=== PATIENT | male | born 1970 | race Caucasian/White ===

== ENCOUNTER 2017-05-03 16:23 | Outpatient (CLI) | payer OTHER | END 2017-05-03 16:24 | disposition critical access hospital (66) | LOC: EMS 16:23 | PROVIDERS: ATTEND Surgery | DX: M54.89 Other dorsalgia (principal); W10.8XXA Fall (on) (from) other stairs and steps, initial encounter; Y92.89 Other specified places as the place of occurrence of the external cause | CPT/HCPCS: A0425; A0427 ==

== ENCOUNTER 2017-05-03 16:39 | Emergency (ER) | payer OTHER ==
[2017-05-03] MEDS ORDERED: HYDROmorphone 1 MG/ML SYRINGE IVP STA ×4 (16:43→21:03)
[2017-05-03] MEDS ORDERED: KETOROLAC 60 MG/2 ML VIAL IVP STA (16:50)
--- NOTE | 2017-05-03 16:50 | ED Physician Documentation ---
PD HPI BACK PAIN - Stated complaint Stated Complaint: FALL - History obtained from History obtained from: Patient - History of Present Illness Timing - onset: Other (Brought in by ambulance, he has a history of chronic back issues, also fibromyalgia. He fell down one step out of his RV and hit his back on the step where he has caused his chronic midthoracic back pain. No other injuries. Pain is severe despite getting 5 mg of Valium in route.) Review of Systems Constitutional: denies: Fever, Chills Cardiac: denies: Chest pain / pressure, Palpitations Respiratory: denies: Dyspnea, Cough GI: denies: Abdominal Pain, Nausea, Vomiting PD PAST MEDICAL HISTORY - Present Medications Home Medications: Ambulatory Orders Medication Instructions Recorded Confirmed Cyclobenzaprine [Flexeril] 1 tab PO DAILY 05/03/17 05/03/17 Cyclobenzaprine [Flexeril] 10 mg PO TID PRN #20 tablet 05/03/17 Gabapentin 2 tab PO DAILY 05/03/17 05/03/17 Gabapentin 300 mg PO TID #30 capsule 05/03/17 Metoprolol Succinate/Hctz 3 tab PO DAILY 05/03/17 05/03/17 [Metoprolol ER-Hctz 25-12.5 mg] Omeprazole [PriLOSEC] 1 tab PO DAILY 05/03/17 05/03/17 Oxycodone HCl/Acetaminophen 1 - 2 tab PO Q4H PRN #15 tablet 05/03/17 [Percocet 5-325 mg Tablet] Prazosin [Minipress] 2 tab PO DAILY 05/03/17 05/03/17 - Allergies Allergies/Adverse Reactions: Allergies Allergy/AdvReac Type Severity Reaction Status Date / Time metoclopramide [From Reglan] Allergy Cramps Verified 05/03/17 16:53 nortriptyline Allergy Respiratory Verified 05/03/17 16:53 PD ED PE NORMAL - Vitals Vital signs reviewed: Yes - General General: Alert and oriented X 3, Other (Quite sweaty, refuses to move, sitting up. Quite tender in the mid back.) - HEENT HEENT: PERRL, EOMI - Neck Neck: Supple, no meningeal sign, No bony TTP - Cardiac Cardiac: RRR, No murmur - Respiratory Respiratory: No respiratory distress, Clear bilaterally - Abdomen Abdomen: Soft, Non tender - Back Back: Other (Tender from about T6-T10, no deformity. There is also a prieto there , about T8 from the step) - Extremities Extremities: No deformity, No tenderness to palpate - Neuro Neuro: Alert and oriented X 3, Normal speech - Psych Psych: Normal mood, Normal affect Results - Vitals Vitals: Vital Signs - 24 hr 05/03/17 05/03/17 05/03/17 16:47 18:18 19:50 Temperature 36.8 C 36.5 C Heart Rate 154 H 116 H 115 H Respiratory 24 20 20 Rate Blood Pressure 138/96 H 138/90 H O2 Saturation 100 100 99 05/03/17 05/03/17 20:10 21:36 Temperature 36.4 C L Heart Rate 118 H 126 H Respiratory 16 20 Rate Blood Pressure 149/94 H O2 Saturation 98 Oxygen O2 Source Room air Procedures - General procedure General procedure: Trigger point injection just left about T8 with 10ml marcaine with epi. PD MEDICAL DECISION MAKING - ED course ED course: 46-year-old gentleman with a back injury, CT scan shows no acute issue. Over time it was more like spasm, very motion related pain in the thoracic spine. He was difficult to get a hold of his pain, and was administered divided doses of Toradol, gabapentin, Dilaudid, Ativan. We were slowly able to get control of his pain. He was also given trigger point injections with Marcaine. Also Lidoderm patch. He did not want to be admitted. Departure - Departure Disposition: 01 Home, Self Care Clinical Impression: Back spasm Back contusion Qualifiers: Encounter type: initial encounter Laterality: right Qualified Code(s): S20.221A - Contusion of right back wall of thorax, initial encounter Condition: Good Record reviewed to determine appropriate education?: Yes Instructions: ED Spasm Back No Trauma, ED Contusion Back Prescriptions: Cyclobenzaprine [Flexeril] 10 mg PO TID PRN #20 tablet PRN Reason: Pain Gabapentin 300 mg PO TID #30 capsule Oxycodone HCl/Acetaminophen [Percocet 5-325 mg Tablet] 1 - 2 tab PO Q4H PRN #15 tablet PRN Reason: Pain Comments: Call your doctor to arrange a follow-up appointment, make the next available appointment. In the interim, return anytime if worse or if new symptoms develop. Your blood pressure was elevated today on check into the emergency department. This does not mean that you have hypertension, it is a common phenomenon to come to the emergency department and have elevated blood pressure. I recommend that you see your primary care physician within the week to have it rechecked when you are feeling better. Do not drink or drive while taking narcotic pain medication. Note that many narcotic pain relievers also contain Tylenol/acetaminophen. Please ensure that your total dose of acetaminophen from all sources does not exceed 3 g (3000 mg) per day. You may get constipated while on this medication. Take a stool softener such as Colace twice a day while you are on it. Also add an [id number] laxative such as senna or MiraLAX on any day that you do not have a bowel movement. If you received a narcotic pain medication or sedative while in the emergency department, do not drive for the next 24 hours.
[2017-05-03] MEDS ORDERED: HYDROmorphone 1 MG/ML SYRINGE ONE ×2 (16:51→21:20)
--- NOTE | 2017-05-03 18:43 | CT Preliminary Report ---
Exam: CT THORACIC SPINE W/O IMPRESSION: Mild spondylosis. No acute bony abnormalities identified. [facility] SITE ID: [id number]
--- NOTE | 2017-05-03 18:46 | CT Report ---
EXAM: CT THORACIC SPINE WITHOUT CONTRAST EXAM DATE: 05/03/2017 05:54 PM. CLINICAL HISTORY: Fell down RV steps backward. Back injury. COMPARISONS: None. TECHNIQUE: Thin-section axial images were acquired of the thoracic spine from C7 to L1 without contra st. Post-processing: Coronal and sagittal reformats. Other: None. IV Contrast: None. In accordance with CT protocol optimization, one or more of the following dose reduction techniques w ere utilized for this exam: automated exposure control, adjustment of mA and/or KV based on patient s ize, or use of iterative reconstructive technique. FINDINGS: Alignment: No scoliosis or spondylolisthesis. Bones: Endplate spurring. No traumatic or destructive bone abnormality is identified. Disk Levels/Facets: Disk spaces preserved. No facet arthropathy. Other: The visualized lungs, mediastinum, and abdominal cavity are unremarkable. IMPRESSION: Mild spondylosis. No acute bony abnormalities identified. [facility] Referring Provider Line: [phone] SITE ID: [id number]
[2017-05-03] MEDS ORDERED: GABAPENTIN 100 MG CAPSULE PO STA ×2 (18:55→22:14)
[2017-05-03] MEDS ORDERED: LIDOCAINE PATCH 5% TOP PRN (18:55)
[2017-05-03] MEDS ORDERED: LORazepam 2 MG/ML VIAL IVP SCH (19:00)
[2017-05-03] MEDS ORDERED: ALBUTEROL NEB 2.5 MG/3 ML INH STA (19:53)
[2017-05-03] MEDS ORDERED: BUPIVACAINE 0.5%-EPI 1:200000 PF 30 ML VIAL SUBQ ONE (21:50)
[2017-05-03] MEDS ORDERED: oxyCODONE/ACET 5/325 Prepack 4 PO STA (21:50)
[2017-05-03] MEDS ORDERED: SODIUM CHLORIDE 0.9% 1,000 ML IV ONE (22:14)
[2017-05-03] MEDS ORDERED: METHOCARBAMOL 500 MG TABLET PO STA (22:14)
[2017-05-04] MEDS ORDERED: DEXAMETHASONE 10 MG/ML VIAL IVP STA (00:44)
--- NOTE | 2017-05-04 00:48 | ED Physician Documentation ---
PD HPI BACK PAIN - Stated complaint Stated Complaint: FALL - Chief complaint Chief Complaint: Back Pain - History obtained from History obtained from: Patient, Family - History of Present Illness Timing - onset: Today PD PAST MEDICAL HISTORY - Past Medical History Past Medical History: Yes Endocrine/Autoimmune: Other Psych: Post traumatic stress disorder, Other Other Past Medical History: FIBROMYALGIA - Past Surgical History Past Surgical History: Yes Ortho: Other HEENT: Tonsil/Adenoidectomy - Present Medications Home Medications: Ambulatory Orders Medication Instructions Recorded Confirmed Cyclobenzaprine [Flexeril] 1 tab PO DAILY 05/03/17 05/03/17 Cyclobenzaprine [Flexeril] 10 mg PO TID PRN #20 tablet 05/03/17 Gabapentin 2 tab PO DAILY 05/03/17 05/03/17 Gabapentin 300 mg PO TID #30 capsule 05/03/17 Metoprolol Succinate/Hctz 3 tab PO DAILY 05/03/17 05/03/17 [Metoprolol ER-Hctz 25-12.5 mg] Omeprazole [PriLOSEC] 1 tab PO DAILY 05/03/17 05/03/17 Oxycodone HCl/Acetaminophen 1 - 2 tab PO Q4H PRN #15 tablet 05/03/17 [Percocet 5-325 mg Tablet] Prazosin [Minipress] 2 tab PO DAILY 05/03/17 05/03/17 Lidocaine Patch 5% [Lidoderm Patch] 1 each TOP DAILY #10 patch 05/04/17 - Allergies Allergies/Adverse Reactions: Allergies Allergy/AdvReac Type Severity Reaction Status Date / Time metoclopramide [From Reglan] Allergy Cramps Verified 05/03/17 16:53 nortriptyline Allergy Respiratory Verified 05/03/17 16:53 - Social History Does the pt smoke?: No Smoking Status: Never smoker Does the pt drink ETOH?: No Does the pt have substance abuse?: No - Immunizations Immunizations are current?: Yes - POLST Patient has POLST: No Results - Vitals Vitals: Vital Signs - 24 hr 05/03/17 05/03/17 05/03/17 16:47 18:18 19:50 Temperature 36.8 C 36.5 C Heart Rate 154 H 116 H 115 H Respiratory 24 20 20 Rate Blood Pressure 138/96 H 138/90 H O2 Saturation 100 100 99 05/03/17 05/03/1705/03/17 20:10 21:36 23:24 Temperature 36.4 C L 36.1 C L Heart Rate 118 H 126 H 108 H Respiratory 16 20 20 Rate Blood Pressure 149/94 H 134/88 H O2 Saturation 98 100 05/04/17 01:10 Temperature 36.8 C Heart Rate 100 Respiratory 20 Rate Blood Pressure 150/124 H O2 Saturation 100 Oxygen O2 Source Room air PD MEDICAL DECISION MAKING - ED course Complexity details: d/w patient, d/w family ED course: 46-year-old male with a back injury and very difficult pain to control does seem to have some improvement after hydration with regards to his back spasm. He did want a Lidoderm patch prescribed and this was prescribed for the patient. He was also given a dose of dexamethasone intravenously. This caused some acute nausea and vomiting and he required a dose of Zofran intravenously. At the conclusion of his visit he was improved. Departure - Departure Disposition: 01 Home, Self Care Clinical Impression: Back spasm Back contusion Qualifiers: Encounter type: initial encounter Laterality: right Qualified Code(s): S20.221A - Contusion of right back wall of thorax, initial encounter Condition: Good Instructions: ED Spasm Back No Trauma, ED Contusion Back Prescriptions: Cyclobenzaprine [Flexeril] 10 mg PO TID PRN #20 tablet PRN Reason: Pain Gabapentin 300 mg PO TID #30 capsule Lidocaine Patch 5% [Lidoderm Patch] 1 each TOP DAILY #10 patch Oxycodone HCl/Acetaminophen [Percocet 5-325 mg Tablet] 1 - 2 tab PO Q4H PRN #15 tablet PRN Reason: Pain Comments: Call your doctor to arrange a follow-up appointment, make the next available appointment. In the interim, return anytime if worse or if new symptoms develop. Your blood pressure was elevated today on check into the emergency department. This does not mean that you have hypertension, it is a common phenomenon to come to the emergency department and have elevated blood pressure. I recommend that you see your primary care physician within the week to have it rechecked when you are feeling better. Do not drink or drive while taking narcotic pain medication. Note that many narcotic pain relievers also contain Tylenol/acetaminophen. Please ensure that your total dose of acetaminophen from all sources does not exceed 3 g (3000 mg) per day. You may get constipated while on this medication. Take a stool softener such as Colace twice a day while you are on it. Also add an [id number] laxative such as senna or MiraLAX on any day that you do not have a bowel movement. If you received a narcotic pain medication or sedative while in the emergency department, do not drive for the next 24 hours. Discharge Date/Time: 05/04/17 01:30
[2017-05-04] MEDS ORDERED: ONDANSETRON 4 MG/2 ML VIAL IVP STA (01:04)
[2017-05-04] MEDS ORDERED: ONDANSETRON 4 MG/2 ML VIAL ONE (01:11)
[2017-05-04 01:14] VITALS: BP 150/124
== END 2017-05-04 01:30 | disposition home or self-care (01) ==
LOC: EDSEX → ED 16:39
DX: S20.221A Contusion of right back wall of thorax, initial encounter (principal); W10.8XXA Fall (on) (from) other stairs and steps, initial encounter; M62.830 Muscle spasm of back; R03.0 Elevated blood-pressure reading, without diagnosis of hypertension; M79.7 Fibromyalgia; G89.29 Other chronic pain
CPT/HCPCS: 72128; 94640; 96374; 96375; 96376; 99283; 99284; A9270; J1170; J2060; J7613